=== PATIENT | female | born 1955 | race African-American/Black ===

== ENCOUNTER 2022-05-07 16:51 | Inpatient (IN) | payer MEDICARE, OTHER, MEDICAID ==
[~2022-05-07] VITALS: Ht 162.6 cm; Wt 78.0 kg
[~2022-05-07 16:51] MED LIST: BUSP10TA4 PO; CIPR-263 PO; CLAR10 PO; ESCI10TA PO; FLONAS BOTHNSTRLS; HYDR12.529 PO; OMEP20CA14 PO; TRAZ-251 PO
[2022-05-07] MEDS ORDERED: NICARDIPINE 40MG/200ML PREMIX 200 ML IV PRN ×2 (17:30→23:30)
[2022-05-07] MEDS ORDERED: LEVETIRACETAM 1000MG PREMIX 100 ML IV ONE (17:30)
[2022-05-07] MEDS ORDERED: MANNITOL 20% (20GM/100ML) BAG 500ML PREMIX IV NR (17:30)
[2022-05-07 17:38] LABS: BASOPHILS % 0.2 % (0.0-2.0); EOSINOPHILS % 2.5 % (0.0-5.0); HEMATOCRIT. 21.8 % (36.0-48.0); HEMOGLOBIN. 7.2 g/dL (12.0-16.0); MEAN CORPUSCULAR HEMOGLOBIN 30.8 pg (28.0-32.0); MEAN CORPUSCULAR VOLUME 93.6 fL (81.0-99.0); MEAN PLATELET VOLUME 7.9 fl (7.4-10.4); MONOCYTES % 4.9 % (2.0-8.0); NEUTROPHILS % 73.4 % (40.0-76.0); PLATELET 167 x1000/uL (130-400); RED BLOOD CELL COUNT 2.33 mill/uL (4.2-5.4); RED CELL DISTRIBUTION WIDTH 14.7 % (11.6-14.6)
[2022-05-07 17:44] LABS: PROTHROMBIN TIME 11.2 sec (9.6-11.0)
[2022-05-07 17:56] LABS: CHLORIDE 104 mEq/L (98-107)
[2022-05-07 18:09] LABS: CREATINE KINASE 253 IU/L (26-192); ETHANOL BLOOD < 10 mg/dL
[2022-05-07] MEDS ORDERED: IOHEXOL-350 100 ML BOTTLE ONE (19:28)
[2022-05-08] VITALS (46 sets, daily range): BP systolic 104–140; BP diastolic 47–73
[2022-05-08 00:28] LABS: HEMATOCRIT. 27.6 % (36.0-48.0); HEMOGLOBIN. 9.3 g/dL (12.0-16.0); MEAN CORPUSCULAR HEMOGLOBIN 31.6 pg (28.0-32.0); MEAN CORPUSCULAR VOLUME 93.4 fL (81.0-99.0); MEAN PLATELET VOLUME 8.2 fl (7.4-10.4); PLATELET 204 x1000/uL (130-400); RED BLOOD CELL COUNT 2.96 mill/uL (4.2-5.4); RED CELL DISTRIBUTION WIDTH 15.2 % (11.6-14.6)
[2022-05-08 01:52] LABS: PLATELET ESTIMATE NORMAL
[2022-05-08] MEDS ORDERED: PROPOFOL 200MG/20ML VIAL IV ONE (10:24)
[2022-05-08] MEDS ORDERED: ONDANSETRON HCL 4MG/2ML INJ ONE (10:32)
[2022-05-08] MEDS ORDERED: DEXAMETHASONE 4MG/ML 1ML VIAL ONE (10:33)
[2022-05-08] MEDS ORDERED: ROCURONIUM BROMIDE 10MG/ML VIAL 5ML IV ONE (10:33)
[2022-05-08] MEDS ORDERED: MIDAZOLAM HCL 2 MG/2 ML VIAL ONE (10:36)
[2022-05-08] MEDS ORDERED: THROMBIN (BOVINE) 5000 UNITS/VIAL TOP ONE (10:44)
[2022-05-08] MEDS ORDERED: LIDOCAINE HCL 1%/EPI 1:200,000 30 ML VIAL ONE (10:44)
[2022-05-08] MEDS ORDERED: GENTAMICIN SULF 40MG/ML 2ML VIAL ONE (10:45)
[2022-05-08] MEDS ORDERED: SKIN ADHESIVE 0.7 GM EA TOP ONE (10:45)
[2022-05-08] MEDS ORDERED: BACITRACIN 15GM TUBE TOP ONE (10:45)
[2022-05-08] MEDS: DEXT 5%/LACTATED RINGERS 1,000 ML IV SCH (11:00)
[2022-05-08] MEDS ORDERED: LEVETIRACETAM 500 MG in SODIUM CHLORIDE 0.9% 100 ML IV SCH (11:00)
[2022-05-08] MEDS ORDERED: ONDANSETRON HCL 4MG/2ML INJ IV PRN (11:15)
[2022-05-08] MEDS ORDERED: CEFAZOLIN SODIUM 1000MG/VIAL ONE (11:43)
[2022-05-08] MEDS ORDERED: FENTANYL CITRATE/PF 50MCG/ML 2ML VIAL ONE ×2 (11:43→11:53)
[2022-05-08] MEDS ORDERED: PROPOFOL 10MG/ML 100ML 100 ML IV PRN (11:45)
[2022-05-08 13:43] LABS: BG BASE EXCESS -3.1 mmol/L (-2.0-2.0); BG CARBOXYHEMOGLOBIN 0.3 % (0.5-1.5); BG DEOXYHEMOGLOBIN 0.2 % (0.0-5.0); BG FRACTION INSPIRED OXYGEN 100; BG HCO3 ACT 19.9 mmol/L (22.0-26.0); BG METHEMOGLOBIN 0.6 % (0.0-1.5); BG OXYGEN SATURATION 99.8 % (92.0-98.5); BG OXYHEMOGLOBIN 98.9 % (94.0-97.0); BG PCO2 28.5 mmHg (35.0-45.0); BG PH 7.462 (7.350-7.450); BG PO2 583.7 mmHg (75.0-100.0); BG SAMPLE SITE RIGHT RADIAL; BG TOTAL HEMOGLOBIN 9.3 g/dL (12.0-18.0); BG VENT MODE VENT - AC
[2022-05-08] MEDS ORDERED: CEFAZOLIN SODIUM 1000MG/VIAL IV SCH (14:00)
[2022-05-08] MEDS: PANTOPRAZOLE SODIUM 40 MG/VIAL IV SCH (14:30)
[2022-05-08] MEDS: LEVETIRACETAM 500MG PREMIX 100 ML IV SCH ×2 (14:31→21:44)
[2022-05-08] MEDS: CEFAZOLIN 1000MG PREMIX 50 ML IV SCH ×2 (14:31→21:44)
[2022-05-08] MEDS: DEXAMETHASONE 4MG/ML 1ML VIAL IV SCH ×3 (14:31→23:41)
[2022-05-08] MEDS: NICARDIPINE 100 MG in SODIUM CHLORIDE 0.9% 60 ML IV PRN (14:31)
[2022-05-08] MEDS: AMLODIPINE 10MG TABLET PO SCH (16:14)
[2022-05-08] MEDS: HYDRALAZINE HCL 25MG TABLET PO SCH ×2 (16:14→21:45)
[2022-05-08 22:16] LABS: CLARITY URINE CLEAR (CLEAR); COLOR URINE YELLOW (YELLOW); KETONES URINE NEGATIVE (NEGATIVE); LEUKOCYTE ESTERASE URINE NEGATIVE (NEGATIVE); NITRITE URINE NEGATIVE (NEGATIVE); OCCULT BLOOD URINE TRACE (NEGATIVE); PROTEIN URINE TRACE (NEGATIVE); SPECIFIC GRAVITY URINE 1.023 (1.005-1.030); UROBILINOGEN URINE 0.2 E.U./dL (0.2-1.0)
[2022-05-08 22:36] LABS: *AMPHETAMINES SCREEN URINE NEGATIVE (NEGATIVE); *BARBITURATES SCREEN URINE NEGATIVE (NEGATIVE); *BENZODIAZEPINES SCREEN URINE PRESUMTIVE POSITIVE (NEGATIVE); *COCAINE SCREEN URINE NEGATIVE (NEGATIVE); CANNABINOID URINE SCREEN NEGATIVE (NEGATIVE); METHADONE URINE SCREEN NEGATIVE (NEGATIVE); OPIATES URINE SCREEN NEGATIVE (NEGATIVE); PHENCYCLIDINE URINE SCREEN NEGATIVE (NEGATIVE)
[2022-05-09] VITALS (95 sets, daily range): BP systolic 111–142; BP diastolic 48–67
[2022-05-09] MEDS: DEXT 5%/LACTATED RINGERS 1,000 ML IV SCH ×2 (03:07→20:20)
[2022-05-09] MEDS: HYDRALAZINE HCL 25MG TABLET PO SCH (05:22)
[2022-05-09] MEDS: CEFAZOLIN 1000MG PREMIX 50 ML IV SCH ×3 (05:22→21:19)
[2022-05-09] MEDS: DEXAMETHASONE 4MG/ML 1ML VIAL IV SCH ×2 (05:22→12:51)
[2022-05-09 05:26] LABS: HEMATOCRIT. 26.3 % (36.0-48.0); HEMOGLOBIN. 8.4 g/dL (12.0-16.0); MEAN CORPUSCULAR HEMOGLOBIN 30.4 pg (28.0-32.0); MEAN CORPUSCULAR VOLUME 94.6 fL (81.0-99.0); MEAN PLATELET VOLUME 8.5 fl (7.4-10.4); PLATELET 196 x1000/uL (130-400); RED BLOOD CELL COUNT 2.78 mill/uL (4.2-5.4); RED CELL DISTRIBUTION WIDTH 15.7 % (11.6-14.6)
[2022-05-09 07:55] LABS: BG BASE EXCESS -3.2 mmol/L (-2.0-2.0); BG CARBOXYHEMOGLOBIN 0.3 % (0.5-1.5); BG DEOXYHEMOGLOBIN 1.5 % (0.0-5.0); BG FRACTION INSPIRED OXYGEN 40; BG HCO3 ACT 21.1 mmol/L (22.0-26.0); BG METHEMOGLOBIN 0.2 % (0.0-1.5); BG OXYGEN SATURATION 98.5 % (92.0-98.5); BG PCO2 34.3 mmHg (35.0-45.0); BG PH 7.406 (7.350-7.450); BG PO2 124.3 mmHg (75.0-100.0); BG SAMPLE SITE RIGHT RADIAL; BG TOTAL HEMOGLOBIN 8.6 g/dL (12.0-18.0); BG VENT MODE VENT - AC
[2022-05-09] MEDS: PANTOPRAZOLE SODIUM 40 MG/VIAL IV SCH (08:44)
[2022-05-09] MEDS: AMLODIPINE 10MG TABLET PO SCH (08:44)
[2022-05-09] MEDS: LEVETIRACETAM 500MG PREMIX 100 ML IV SCH ×2 (08:44→20:35)
[2022-05-09 11:39] LABS: PLATELET ESTIMATE NORMAL
[2022-05-09] MEDS: HYDRALAZINE HCL 50MG TABLET PO SCH ×2 (13:11→21:18)
[2022-05-09] MEDS: NICARDIPINE 100 MG in SODIUM CHLORIDE 0.9% 60 ML IV PRN (18:19)
[2022-05-10] VITALS (95 sets, daily range): BP systolic 108–149; BP diastolic 46–67
[2022-05-10] MEDS: HYDRALAZINE 20MG/ML VIAL IV PRN ×2 (02:07→20:42)
[2022-05-10 05:30] LABS: HEMATOCRIT. 24.4 % (36.0-48.0); HEMOGLOBIN. 7.8 g/dL (12.0-16.0); MEAN PLATELET VOLUME 8.6 fl (7.4-10.4); PLATELET 176 x1000/uL (130-400); RED CELL DISTRIBUTION WIDTH 15.4 % (11.6-14.6)
[2022-05-10] MEDS: CEFAZOLIN 1000MG PREMIX 50 ML IV SCH ×2 (05:34→13:27)
[2022-05-10] MEDS: HYDRALAZINE HCL 50MG TABLET PO SCH (05:35)
[2022-05-10] MEDS: PANTOPRAZOLE SODIUM 40 MG/VIAL IV SCH (08:30)
[2022-05-10] MEDS: LEVETIRACETAM 500MG PREMIX 100 ML IV SCH ×2 (08:31→19:54)
[2022-05-10] MEDS: AMLODIPINE 10MG TABLET PO SCH (08:32)
[2022-05-10] MEDS ORDERED: DEXTROSE 5% WATER 1,000 ML IV SCH (08:57)
[2022-05-10] MEDS ORDERED: AMLODIPINE 10MG TABLET PO SCH (09:00)
[2022-05-10 10:11] LABS: PLATELET ESTIMATE NORMAL
[2022-05-10] MEDS ORDERED: DEXTROSE 50% WATER 50ML SYRINGE IV PRN (11:15)
[2022-05-10] MEDS: DEXT 5%/LACTATED RINGERS 1,000 ML IV SCH (12:38)
[2022-05-10] MEDS: INSULIN LISPRO 100 UNITS/ML SUBCUT SCH ×3 (12:39→23:24)
[2022-05-10] MEDS: BLOOD SUGAR DIAGNOSTIC STRIP TEST SCH ×3 (12:39→23:24)
[2022-05-10] MEDS: HYDRALAZINE HCL 100MG TABLET PO SCH ×2 (13:28→21:15)
[2022-05-10] MEDS: MORPHINE SULFATE 4 MG/ML CPJ (NOT FOR IM USE) IV PRN (19:54)
[2022-05-10] MEDS: PIPERACILLIN/TAZOBACTAM 3.375 G in DEXTROSE 5% WATER 50 ML IV SCH (20:36)
[2022-05-11] VITALS (95 sets, daily range): BP systolic 119–147; BP diastolic 46–68
[2022-05-11] MEDS: HYDRALAZINE 20MG/ML VIAL IV PRN (03:18)
[2022-05-11] MEDS: BLOOD SUGAR DIAGNOSTIC STRIP TEST SCH ×4 (05:03→23:28)
[2022-05-11] MEDS: INSULIN LISPRO 100 UNITS/ML SUBCUT SCH ×4 (05:07→23:32)
[2022-05-11] MEDS: DEXT 5%/LACTATED RINGERS 1,000 ML IV SCH ×2 (05:07→21:31)
[2022-05-11] MEDS: PIPERACILLIN/TAZOBACTAM 3.375 G in DEXTROSE 5% WATER 50 ML IV SCH ×3 (05:07→21:30)
[2022-05-11] MEDS: HYDRALAZINE HCL 100MG TABLET PO SCH ×3 (05:07→21:32)
[2022-05-11] MEDS: MORPHINE SULFATE 4 MG/ML CPJ (NOT FOR IM USE) IV PRN (05:32)
[2022-05-11 05:47] LABS: HEMATOCRIT. 24.6 % (36.0-48.0); HEMOGLOBIN. 8.1 g/dL (12.0-16.0); MEAN CORPUSCULAR HEMOGLOBIN 30.7 pg (28.0-32.0); MEAN CORPUSCULAR VOLUME 93.3 fL (81.0-99.0); MEAN PLATELET VOLUME 8.3 fl (7.4-10.4); PLATELET 176 x1000/uL (130-400); RED BLOOD CELL COUNT 2.64 mill/uL (4.2-5.4); RED CELL DISTRIBUTION WIDTH 15.7 % (11.6-14.6)
[2022-05-11] MEDS ORDERED: AMLODIPINE 10MG TABLET PO SCH (09:00)
[2022-05-11 09:03] LABS: BG BASE EXCESS -3.6 mmol/L (-2.0-2.0); BG CARBOXYHEMOGLOBIN 0.1 % (0.5-1.5); BG FRACTION INSPIRED OXYGEN 30; BG HCO3 ACT 20.7 mmol/L (22.0-26.0); BG METHEMOGLOBIN 0.3 % (0.0-1.5); BG OXYHEMOGLOBIN 97.6 % (94.0-97.0); BG PCO2 33.8 mmHg (35.0-45.0); BG PH 7.405 (7.350-7.450); BG SAMPLE SITE RIGHT RADIAL; BG TOTAL HEMOGLOBIN 7.5 g/dL (12.0-18.0); BG VENT MODE VENT - AC
[2022-05-11] MEDS: PANTOPRAZOLE SODIUM 40 MG/VIAL IV SCH (09:13)
[2022-05-11] MEDS: LEVETIRACETAM 500MG PREMIX 100 ML IV SCH ×2 (09:14→21:31)
[2022-05-11] MEDS: AMLODIPINE 10MG TABLET PO SCH ×2 (09:14→21:31)
[2022-05-11 10:28] LABS: PLATELET ESTIMATE NORMAL
[2022-05-11] MEDS: NICARDIPINE 100 MG in SODIUM CHLORIDE 0.9% 60 ML IV PRN (12:39)
[2022-05-11] MEDS: CARVEDILOL 6.25 MG TABLET PO SCH ×2 (17:33→21:32)
[2022-05-12] VITALS (96 sets, daily range): BP systolic 92–149; BP diastolic 42–113
[2022-05-12] MEDS: BLOOD SUGAR DIAGNOSTIC STRIP TEST SCH ×3 (05:20→18:53)
[2022-05-12] MEDS: INSULIN LISPRO 100 UNITS/ML SUBCUT SCH ×3 (05:26→17:31)
[2022-05-12] MEDS: PIPERACILLIN/TAZOBACTAM 3.375 G in DEXTROSE 5% WATER 50 ML IV SCH ×3 (05:26→21:39)
[2022-05-12] MEDS: HYDRALAZINE HCL 100MG TABLET PO SCH ×3 (05:27→21:39)
[2022-05-12 05:43] LABS: HEMATOCRIT. 23.2 % (36.0-48.0); HEMOGLOBIN. 7.7 g/dL (12.0-16.0); MEAN CORPUSCULAR VOLUME 93.9 fL (81.0-99.0); MEAN PLATELET VOLUME 9.1 fl (7.4-10.4); PLATELET 167 x1000/uL (130-400); RED BLOOD CELL COUNT 2.47 mill/uL (4.2-5.4); RED CELL DISTRIBUTION WIDTH 15.6 % (11.6-14.6)
[2022-05-12] MEDS ORDERED: LIDOCAINE HCL 1% 30ML VIAL (10MG/ML) ONE (07:32)
[2022-05-12] MEDS: PANTOPRAZOLE SODIUM 40 MG/VIAL IV SCH (09:58)
[2022-05-12] MEDS: LEVETIRACETAM 500MG PREMIX 100 ML IV SCH ×2 (09:58→20:48)
[2022-05-12] MEDS: CARVEDILOL 6.25 MG TABLET PO SCH ×2 (09:58→21:39)
[2022-05-12] MEDS: AMLODIPINE 10MG TABLET PO SCH ×2 (09:59→21:39)
[2022-05-12 10:05] LABS: PLATELET ESTIMATE NORMAL
[2022-05-12] MEDS ORDERED: POTASSIUM CHLORIDE 20MEQ TABLET SR PO NR (11:30)
[2022-05-12] MEDS: LACTULOSE 20G/30ML UDC PO PRN (14:26)
[2022-05-12] MEDS: CLONIDINE 0.1MG TABLET PO SCH ×2 (14:28→21:46)
[2022-05-12] MEDS: DEXT 5%/0.45% NACL 1000ML 1,000 ML IV SCH (14:28)
[2022-05-12] MEDS: ISOSORBIDE DINITRATE 20MG TABLET PO SCH (17:30)
[2022-05-13] VITALS (90 sets, daily range): BP systolic 95–147; BP diastolic 43–91
[2022-05-13] MEDS: INSULIN LISPRO 100 UNITS/ML SUBCUT SCH ×5 (00:31→23:29)
[2022-05-13 05:40] LABS: HEMATOCRIT. 22.1 % (36.0-48.0); HEMOGLOBIN. 7.3 g/dL (12.0-16.0); MEAN CORPUSCULAR VOLUME 94.1 fL (81.0-99.0); MEAN PLATELET VOLUME 8.8 fl (7.4-10.4); PLATELET 156 x1000/uL (130-400); RED BLOOD CELL COUNT 2.34 mill/uL (4.2-5.4); RED CELL DISTRIBUTION WIDTH 15.9 % (11.6-14.6)
[2022-05-13] MEDS: CLONIDINE 0.1MG TABLET PO SCH ×2 (06:00→14:46)
[2022-05-13] MEDS: BLOOD SUGAR DIAGNOSTIC STRIP TEST SCH ×5 (06:00→23:28)
[2022-05-13] MEDS: HYDRALAZINE HCL 100MG TABLET PO SCH ×3 (06:00→21:39)
[2022-05-13] MEDS: PIPERACILLIN/TAZOBACTAM 3.375 G in DEXTROSE 5% WATER 50 ML IV SCH ×3 (06:08→21:39)
[2022-05-13 07:30] LABS: ATYPICAL LYMPHOCYTES 1
[2022-05-13 07:31] LABS: PLATELET ESTIMATE NORMAL
[2022-05-13] MEDS: DEXT 5%/0.45% NACL 1000ML 1,000 ML IV SCH ×2 (08:51→23:28)
[2022-05-13] MEDS: PANTOPRAZOLE SODIUM 40 MG/VIAL IV SCH (08:51)
[2022-05-13] MEDS: LEVETIRACETAM 500MG PREMIX 100 ML IV SCH ×2 (08:51→21:00)
[2022-05-13] MEDS: AMLODIPINE 10MG TABLET PO SCH ×2 (08:52→21:00)
[2022-05-13] MEDS: CARVEDILOL 6.25 MG TABLET PO SCH (09:00)
[2022-05-13] MEDS: ISOSORBIDE DINITRATE 20MG TABLET PO SCH ×3 (12:35→17:58)
[2022-05-13] MEDS: LACTULOSE 20G/30ML UDC PO PRN (17:57)
[2022-05-13] MEDS ORDERED: POTASSIUM CHLORIDE 20MEQ/PACKET PO NR (20:00)
[2022-05-13] MEDS: CARVEDILOL 3.125 MG TABLET PO SCH (21:39)
[2022-05-14] VITALS (60 sets, daily range): BP systolic 89–153; BP diastolic 46–81
[2022-05-14] MEDS: HYDRALAZINE HCL 100MG TABLET PO SCH ×3 (05:24→21:11)
[2022-05-14] MEDS: PIPERACILLIN/TAZOBACTAM 3.375 G in DEXTROSE 5% WATER 50 ML IV SCH ×3 (05:24→21:11)
[2022-05-14] MEDS: INSULIN LISPRO 100 UNITS/ML SUBCUT SCH ×4 (05:25→23:25)
[2022-05-14] MEDS: BLOOD SUGAR DIAGNOSTIC STRIP TEST SCH ×4 (05:25→23:25)
[2022-05-14 05:26] LABS: EOSINOPHILS % 0.9 % (0.0-5.0); HEMOGLOBIN. 7.3 g/dL (12.0-16.0); LYMPHOCYTES % 9.7 % (20.0-50.0); MEAN CORPUSCULAR VOLUME 93.3 fL (81.0-99.0); MEAN PLATELET VOLUME 8.7 fl (7.4-10.4); MONOCYTES % 6.8 % (2.0-8.0); NEUTROPHILS % 82.6 % (40.0-76.0); PLATELET 164 x1000/uL (130-400); RED BLOOD CELL COUNT 2.35 mill/uL (4.2-5.4); RED CELL DISTRIBUTION WIDTH 15.5 % (11.6-14.6)
[2022-05-14] MEDS: CARVEDILOL 3.125 MG TABLET PO SCH (09:00)
[2022-05-14] MEDS: LEVETIRACETAM 500MG PREMIX 100 ML IV SCH ×2 (09:03→20:15)
[2022-05-14] MEDS: ISOSORBIDE DINITRATE 20MG TABLET PO SCH ×3 (09:04→18:08)
[2022-05-14] MEDS: PANTOPRAZOLE SODIUM 40 MG/VIAL IV SCH (09:04)
[2022-05-14] MEDS: AMLODIPINE 10MG TABLET PO SCH ×2 (09:04→20:15)
[2022-05-14] MEDS: DEXT 5%/0.45% NACL 1000ML 1,000 ML IV SCH (16:42)
[2022-05-15] VITALS (82 sets, daily range): BP systolic 106–165; BP diastolic 45–78
[2022-05-15 05:38] LABS: EOSINOPHILS % 1.1 % (0.0-5.0); HEMATOCRIT. 22.8 % (36.0-48.0); HEMOGLOBIN. 7.6 g/dL (12.0-16.0); LYMPHOCYTES % 9.6 % (20.0-50.0); MEAN CORPUSCULAR HEMOGLOBIN 31.4 pg (28.0-32.0); MEAN CORPUSCULAR VOLUME 94.3 fL (81.0-99.0); MEAN PLATELET VOLUME 8.8 fl (7.4-10.4); NEUTROPHILS % 82.3 % (40.0-76.0); PLATELET 181 x1000/uL (130-400); RED BLOOD CELL COUNT 2.42 mill/uL (4.2-5.4); RED CELL DISTRIBUTION WIDTH 15.5 % (11.6-14.6)
[2022-05-15] MEDS: PIPERACILLIN/TAZOBACTAM 3.375 G in DEXTROSE 5% WATER 50 ML IV SCH ×2 (05:46→14:16)
[2022-05-15] MEDS: HYDRALAZINE HCL 100MG TABLET PO SCH ×3 (05:46→21:11)
[2022-05-15] MEDS: INSULIN LISPRO 100 UNITS/ML SUBCUT SCH ×4 (05:47→23:41)
[2022-05-15] MEDS: BLOOD SUGAR DIAGNOSTIC STRIP TEST SCH ×4 (05:47→23:31)
[2022-05-15] MEDS: LEVETIRACETAM 500MG PREMIX 100 ML IV SCH ×2 (08:43→21:11)
[2022-05-15] MEDS: PANTOPRAZOLE SODIUM 40 MG/VIAL IV SCH (08:44)
[2022-05-15] MEDS: AMLODIPINE 10MG TABLET PO SCH ×2 (08:44→21:11)
[2022-05-15] MEDS: ISOSORBIDE DINITRATE 20MG TABLET PO SCH (08:44)
[2022-05-15 12:03] LABS: BG BASE EXCESS -3.5 mmol/L (-2.0-2.0); BG CARBOXYHEMOGLOBIN 0.3 % (0.5-1.5); BG DEOXYHEMOGLOBIN 1.7 % (0.0-5.0); BG FRACTION INSPIRED OXYGEN 30; BG HCO3 ACT 20.2 mmol/L (22.0-26.0); BG METHEMOGLOBIN 0.2 % (0.0-1.5); BG OXYGEN SATURATION 98.3 % (92.0-98.5); BG OXYHEMOGLOBIN 97.8 % (94.0-97.0); BG PCO2 30.2 mmHg (35.0-45.0); BG PH 7.443 (7.350-7.450); BG PO2 122.6 mmHg (75.0-100.0); BG SAMPLE SITE RIGHT RADIAL; BG TOTAL HEMOGLOBIN 7.1 g/dL (12.0-18.0); BG VENT MODE VENT - AC
[2022-05-15] MEDS ORDERED: ROCURONIUM BROMIDE 10MG/ML VIAL 5ML IV ONE (15:18)
[2022-05-15] MEDS ORDERED: ONDANSETRON HCL 4MG/2ML INJ ONE (15:37)
[2022-05-15] MEDS ORDERED: DEXAMETHASONE 4MG/ML 1ML VIAL ONE (15:38)
[2022-05-15] MEDS: ISOSORBIDE DINITRATE 30MG TABLET NG SCH ×2 (17:43→21:12)
[2022-05-15] MEDS: DEXT 5%/0.45% NACL 1000ML 1,000 ML IV SCH ×2 (17:57→23:42)
[2022-05-15 21:16] LABS: TOTAL IRON BINDING CAPACITY 146 ug/dL (250-450)
[2022-05-15 21:34] LABS: FERRITIN 358 ng/mL (10-291)
[2022-05-15 21:43] LABS: VITAMIN B12 SERUM 1192 pg/mL (211-911)
[2022-05-16] VITALS (30 sets, daily range): BP systolic 87–151; BP diastolic 39–119
[2022-05-16] MEDS: BLOOD SUGAR DIAGNOSTIC STRIP TEST SCH ×3 (05:25→17:54)
[2022-05-16] MEDS: HYDRALAZINE HCL 100MG TABLET PO SCH ×3 (05:31→22:24)
[2022-05-16] MEDS: ISOSORBIDE DINITRATE 30MG TABLET NG SCH ×3 (05:31→22:24)
[2022-05-16] MEDS: INSULIN LISPRO 100 UNITS/ML SUBCUT SCH ×3 (05:32→18:06)
[2022-05-16 05:44] LABS: HEMATOCRIT. 22.3 % (36.0-48.0); HEMOGLOBIN. 7.3 g/dL (12.0-16.0); MEAN CORPUSCULAR VOLUME 94.4 fL (81.0-99.0); MEAN PLATELET VOLUME 8.7 fl (7.4-10.4); PLATELET 187 x1000/uL (130-400); RED BLOOD CELL COUNT 2.36 mill/uL (4.2-5.4); RED CELL DISTRIBUTION WIDTH 15.6 % (11.6-14.6)
[2022-05-16 07:32] LABS: PLATELET ESTIMATE NORMAL
[2022-05-16] MEDS: PANTOPRAZOLE SODIUM 40 MG/VIAL IV SCH (08:33)
[2022-05-16] MEDS: LEVETIRACETAM 500MG PREMIX 100 ML IV SCH ×2 (08:34→22:23)
[2022-05-16] MEDS: AMLODIPINE 10MG TABLET PO SCH ×2 (08:34→22:23)
[2022-05-16] MEDS: DEXTROSE 5% WATER 1,000 ML IV SCH (11:45)
[2022-05-16] MEDS ORDERED: INSULIN GLARGINE 100 UNITS/ML SUBCUT NR (12:00)
[2022-05-16] MEDS: INSULIN GLARGINE 100 UNITS/ML SUBCUT SCH (22:25)
[2022-05-17] VITALS (17 sets, daily range): BP systolic 112–157; BP diastolic 45–73
[2022-05-17] MEDS ORDERED: DEXT 5%/0.45% NACL 500ML 500 ML IV ONE (00:01)
[2022-05-17] MEDS: BLOOD SUGAR DIAGNOSTIC STRIP TEST SCH ×4 (00:28→17:05)
[2022-05-17] MEDS: INSULIN LISPRO 100 UNITS/ML SUBCUT SCH ×4 (00:29→17:05)
[2022-05-17] MEDS: ISOSORBIDE DINITRATE 30MG TABLET NG SCH ×4 (05:57→21:56)
[2022-05-17] MEDS: HYDRALAZINE HCL 100MG TABLET PO SCH ×4 (05:57→21:57)
[2022-05-17 06:16] LABS: EOSINOPHILS % 0.3 % (0.0-5.0); LYMPHOCYTES % 8.1 % (20.0-50.0); MEAN CORPUSCULAR HEMOGLOBIN 30.1 pg (28.0-32.0); MEAN CORPUSCULAR VOLUME 94.1 fL (81.0-99.0); MEAN PLATELET VOLUME 9.2 fl (7.4-10.4); MONOCYTES % 4.8 % (2.0-8.0); NEUTROPHILS % 86.8 % (40.0-76.0); PLATELET 205 x1000/uL (130-400); RED BLOOD CELL COUNT 2.23 mill/uL (4.2-5.4); RED CELL DISTRIBUTION WIDTH 15.4 % (11.6-14.6)
[2022-05-17 06:35] LABS: PROTHROMBIN TIME 10.3 sec (9.6-11.0)
[2022-05-17 06:58] LABS: HEMOGLOBIN. 6.7 g/dL (12.0-16.0)
[2022-05-17] MEDS: DEXTROSE 5% WATER 1,000 ML IV SCH (09:12)
[2022-05-17] MEDS: PANTOPRAZOLE SODIUM 40 MG/VIAL IV SCH (09:15)
[2022-05-17] MEDS: AMLODIPINE 10MG TABLET PO SCH ×2 (09:23→21:57)
[2022-05-17] MEDS: INSULIN GLARGINE 100 UNITS/ML SUBCUT SCH ×2 (09:36→21:57)
[2022-05-17] MEDS: LEVETIRACETAM 500MG PREMIX 100 ML IV SCH ×2 (10:09→21:56)
[2022-05-17] MEDS ORDERED: IPRATROPIUM/ALBUTEROL 0.5-3(2.5)MG/3ML NEB HHN SCH (12:00)
[2022-05-17] MEDS ORDERED: IPRATROPIUM/ALBUTEROL 0.5-3(2.5)MG/3ML NEB HHN PRN (12:00)
[2022-05-17] MEDS ORDERED: ALBUTEROL (0.083%) 2.5MG/3ML NEB HHN PRN (12:15)
[2022-05-17] MEDS ORDERED: IPRATROPIUM BROMIDE (0.02%) 0.5MG/2.5ML NEB HHN PRN (12:15)
[2022-05-17] MEDS: IPRATROPIUM BROMIDE (0.02%) 0.5MG/2.5ML NEB HHN SCH ×2 (16:12→20:16)
[2022-05-17] MEDS: ALBUTEROL (0.083%) 2.5MG/3ML NEB HHN SCH ×2 (16:13→20:16)
[2022-05-18] VITALS (12 sets, daily range): BP systolic 111–147; BP diastolic 47–63
[2022-05-18] MEDS: INSULIN LISPRO 100 UNITS/ML SUBCUT SCH ×4 (00:23→17:51)
[2022-05-18] MEDS: BLOOD SUGAR DIAGNOSTIC STRIP TEST SCH ×4 (00:24→17:51)
[2022-05-18] MEDS: ALBUTEROL (0.083%) 2.5MG/3ML NEB HHN SCH ×4 (01:41→20:49)
[2022-05-18] MEDS: IPRATROPIUM BROMIDE (0.02%) 0.5MG/2.5ML NEB HHN SCH ×4 (01:41→20:49)
[2022-05-18] MEDS: DEXTROSE 5% WATER 1,000 ML IV SCH ×2 (04:23→23:54)
[2022-05-18] MEDS: ISOSORBIDE DINITRATE 30MG TABLET NG SCH ×3 (06:44→22:09)
[2022-05-18] MEDS: HYDRALAZINE HCL 100MG TABLET PO SCH ×3 (06:44→23:53)
[2022-05-18] MEDS: PANTOPRAZOLE SODIUM 40 MG/VIAL IV SCH (10:27)
[2022-05-18] MEDS: LEVETIRACETAM 500MG PREMIX 100 ML IV SCH ×2 (10:27→22:10)
[2022-05-18] MEDS: AMLODIPINE 10MG TABLET PO SCH ×2 (10:28→22:09)
[2022-05-18] MEDS: INSULIN GLARGINE 100 UNITS/ML SUBCUT SCH ×2 (10:31→22:20)
[2022-05-18 11:01] LABS: BASOPHILS % 0.1 % (0.0-2.0); EOSINOPHILS % 0.8 % (0.0-5.0); HEMATOCRIT. 21.7 % (36.0-48.0); HEMOGLOBIN. 7.1 g/dL (12.0-16.0); MEAN CORPUSCULAR VOLUME 91.4 fL (81.0-99.0); MEAN PLATELET VOLUME 8.6 fl (7.4-10.4); MONOCYTES % 4.9 % (2.0-8.0); NEUTROPHILS % 85.2 % (40.0-76.0); PLATELET 180 x1000/uL (130-400); RED BLOOD CELL COUNT 2.37 mill/uL (4.2-5.4); RED CELL DISTRIBUTION WIDTH 16.1 % (11.6-14.6)
[2022-05-18 17:30] LABS: HEMATOCRIT 22.7 % (36.0-48.0); HEMOGLOBIN 7.5 g/dL (12.0-16.0); MEAN CORPUSCULAR HEMOGLOBIN 30.2 pg (28.0-32.0); MEAN CORPUSCULAR VOLUME 90.8 fL (81.0-99.0); PLATELET 183 x1000/uL (130-400); RED CELL DISTRIBUTION WIDTH 15.8 % (11.6-14.6)
[2022-05-19] VITALS (12 sets, daily range): BP systolic 115–152; BP diastolic 52–74
[2022-05-19] MEDS: BLOOD SUGAR DIAGNOSTIC STRIP TEST SCH ×5 (00:19→23:47)
[2022-05-19] MEDS: INSULIN LISPRO 100 UNITS/ML SUBCUT SCH ×5 (00:19→23:46)
[2022-05-19] MEDS: IPRATROPIUM BROMIDE (0.02%) 0.5MG/2.5ML NEB HHN SCH ×4 (02:15→20:06)
[2022-05-19] MEDS: ALBUTEROL (0.083%) 2.5MG/3ML NEB HHN SCH ×4 (02:15→20:06)
[2022-05-19] MEDS: ISOSORBIDE DINITRATE 30MG TABLET NG SCH ×2 (05:36→13:49)
[2022-05-19] MEDS: HYDRALAZINE HCL 100MG TABLET PO SCH ×3 (05:36→21:18)
[2022-05-19] MEDS: PANTOPRAZOLE SODIUM 40 MG/VIAL IV SCH (10:11)
[2022-05-19] MEDS: AMLODIPINE 10MG TABLET PO SCH ×2 (10:12→21:18)
[2022-05-19] MEDS: LEVETIRACETAM 500MG PREMIX 100 ML IV SCH ×2 (10:12→21:17)
[2022-05-19] MEDS: INSULIN GLARGINE 100 UNITS/ML SUBCUT SCH ×2 (10:15→21:17)
[2022-05-19 15:46] LABS: BASOPHILS % 0.1 % (0.0-2.0); EOSINOPHILS % 1.1 % (0.0-5.0); HEMATOCRIT. 23.5 % (36.0-48.0); HEMOGLOBIN. 7.8 g/dL (12.0-16.0); LYMPHOCYTES % 7.8 % (20.0-50.0); MEAN CORPUSCULAR HEMOGLOBIN 30.2 pg (28.0-32.0); MEAN CORPUSCULAR VOLUME 90.9 fL (81.0-99.0); MEAN PLATELET VOLUME 8.7 fl (7.4-10.4); MONOCYTES % 3.8 % (2.0-8.0); NEUTROPHILS % 87.2 % (40.0-76.0); PLATELET 204 x1000/uL (130-400); RED BLOOD CELL COUNT 2.58 mill/uL (4.2-5.4); RED CELL DISTRIBUTION WIDTH 15.5 % (11.6-14.6)
[2022-05-19] MEDS: ISOSORBIDE DINITRATE 10MG TABLET NG SCH (21:19)
[2022-05-19] MEDS: ACETAMINOPHEN 650MG/20.3ML UDC PO PRN (23:46)
[2022-05-20] VITALS (12 sets, daily range): BP systolic 124–148; BP diastolic 52–71
[2022-05-20] MEDS: IPRATROPIUM BROMIDE (0.02%) 0.5MG/2.5ML NEB HHN SCH ×4 (02:50→20:15)
[2022-05-20] MEDS: ALBUTEROL (0.083%) 2.5MG/3ML NEB HHN SCH ×4 (02:51→20:15)
[2022-05-20 03:09] LABS: HEMATOCRIT. 21.9 % (36.0-48.0); HEMOGLOBIN. 7.2 g/dL (12.0-16.0); MEAN CORPUSCULAR HEMOGLOBIN 29.9 pg (28.0-32.0); MEAN CORPUSCULAR VOLUME 90.7 fL (81.0-99.0); MEAN PLATELET VOLUME 8.2 fl (7.4-10.4); PLATELET 182 x1000/uL (130-400); RED BLOOD CELL COUNT 2.42 mill/uL (4.2-5.4); RED CELL DISTRIBUTION WIDTH 15.7 % (11.6-14.6)
[2022-05-20 03:18] LABS: INR 0.9; PROTHROMBIN TIME 10.2 sec (9.6-11.0)
[2022-05-20 03:20] LABS: CHLORIDE 121 mEq/L (98-107)
[2022-05-20] MEDS: CEFAZOLIN 1000MG PREMIX 50 ML IV NR (05:57)
[2022-05-20] MEDS: ISOSORBIDE DINITRATE 10MG TABLET NG SCH ×3 (05:58→22:08)
[2022-05-20] MEDS: INSULIN LISPRO 100 UNITS/ML SUBCUT SCH ×3 (05:58→18:00)
[2022-05-20] MEDS: HYDRALAZINE HCL 100MG TABLET PO SCH ×3 (05:58→22:08)
[2022-05-20] MEDS: BLOOD SUGAR DIAGNOSTIC STRIP TEST SCH ×3 (05:59→18:00)
[2022-05-20] MEDS: DEXTROSE 5% WATER 1,000 ML IV SCH ×2 (06:00→15:45)
[2022-05-20] MEDS: INSULIN GLARGINE 100 UNITS/ML SUBCUT SCH ×2 (10:00→22:00)
[2022-05-20 11:18] LABS: BG BASE EXCESS 0.6 mmol/L (-2.0-2.0); BG CARBOXYHEMOGLOBIN 0.1 % (0.5-1.5); BG DEOXYHEMOGLOBIN 1.8 % (0.0-5.0); BG FRACTION INSPIRED OXYGEN 30; BG HCO3 ACT 24.5 mmol/L (22.0-26.0); BG METHEMOGLOBIN 0.2 % (0.0-1.5); BG OXYGEN SATURATION 98.2 % (92.0-98.5); BG OXYHEMOGLOBIN 97.9 % (94.0-97.0); BG PCO2 35.8 mmHg (35.0-45.0); BG PH 7.453 (7.350-7.450); BG PO2 119.4 mmHg (75.0-100.0); BG SAMPLE SITE RIGHT RADIAL; BG TOTAL HEMOGLOBIN 7.3 g/dL (12.0-18.0); BG VENT MODE VENT - SIMV
[2022-05-20] MEDS: PANTOPRAZOLE SODIUM 40 MG/VIAL IV SCH (12:49)
[2022-05-20] MEDS: AMLODIPINE 10MG TABLET PO SCH ×2 (12:50→22:07)
[2022-05-20] MEDS ORDERED: LEVETIRACETAM 500MG in SODIUM CHLORIDE 0.9% 100ML IV NR (14:00)
[2022-05-20 15:47] LABS: PLATELET ESTIMATE NORMAL
[2022-05-20] MEDS: LEVETIRACETAM 500MG PREMIX 100 ML IV SCH (22:08)
[2022-05-21] VITALS (12 sets, daily range): BP systolic 125–157; BP diastolic 58–78
[2022-05-21] MEDS: BLOOD SUGAR DIAGNOSTIC STRIP TEST SCH ×4 (00:32→18:10)
[2022-05-21] MEDS: ALBUTEROL (0.083%) 2.5MG/3ML NEB HHN SCH ×4 (01:40→20:22)
[2022-05-21] MEDS: IPRATROPIUM BROMIDE (0.02%) 0.5MG/2.5ML NEB HHN SCH ×4 (01:40→20:23)
[2022-05-21] MEDS: INSULIN LISPRO 100 UNITS/ML SUBCUT SCH ×4 (06:00→18:09)
[2022-05-21 06:29] LABS: PROTHROMBIN TIME 10.3 sec (9.6-11.0)
[2022-05-21] MEDS: ISOSORBIDE DINITRATE 10MG TABLET NG SCH ×3 (06:32→22:01)
[2022-05-21] MEDS: HYDRALAZINE HCL 100MG TABLET PO SCH ×3 (06:32→22:02)
[2022-05-21 06:54] LABS: HEMATOCRIT. 24.5 % (36.0-48.0); HEMOGLOBIN. 8.2 g/dL (12.0-16.0); MEAN CORPUSCULAR HEMOGLOBIN 30.7 pg (28.0-32.0); MEAN CORPUSCULAR VOLUME 91.8 fL (81.0-99.0); PLATELET 192 x1000/uL (130-400); RED BLOOD CELL COUNT 2.67 mill/uL (4.2-5.4); RED CELL DISTRIBUTION WIDTH 15.5 % (11.6-14.6)
[2022-05-21] MEDS: AMLODIPINE 10MG TABLET PO SCH ×2 (09:00→22:01)
[2022-05-21 09:25] LABS: BG BASE EXCESS 0.2 mmol/L (-2.0-2.0); BG CARBOXYHEMOGLOBIN 0.4 % (0.5-1.5); BG DEOXYHEMOGLOBIN 1.3 % (0.0-5.0); BG FRACTION INSPIRED OXYGEN 30; BG HCO3 ACT 24.1 mmol/L (22.0-26.0); BG METHEMOGLOBIN 0.3 % (0.0-1.5); BG OXYGEN SATURATION 98.7 % (92.0-98.5); BG PCO2 35.3 mmHg (35.0-45.0); BG PH 7.452 (7.350-7.450); BG PO2 132.3 mmHg (75.0-100.0); BG SAMPLE SITE RIGHT RADIAL; BG TOTAL HEMOGLOBIN 7.4 g/dL (12.0-18.0); BG VENT MODE VENT - SIMV
[2022-05-21] MEDS: INSULIN GLARGINE 100 UNITS/ML SUBCUT SCH ×2 (10:00→23:10)
[2022-05-21] MEDS: CEFAZOLIN 1000MG PREMIX 50 ML IV NR (10:55)
[2022-05-21] MEDS: LEVETIRACETAM 500MG PREMIX 100 ML IV SCH ×2 (10:55→22:00)
[2022-05-21] MEDS: PANTOPRAZOLE SODIUM 40 MG/VIAL IV SCH (10:56)
[2022-05-21] MEDS: DEXTROSE 5% WATER 1,000 ML IV SCH (10:57)
[2022-05-21] MEDS ORDERED: CEFAZOLIN 1000MG PREMIX 50 ML IV NR (11:00)
[2022-05-21] MEDS ORDERED: PROPOFOL 200MG/20ML VIAL IV ONE (12:30)
[2022-05-21] MEDS ORDERED: ONDANSETRON HCL 4MG/2ML INJ ONE (12:30)
[2022-05-21] MEDS ORDERED: DEXAMETHASONE 4MG/ML 1ML VIAL ONE (12:30)
[2022-05-21 21:26] LABS: PLATELET ESTIMATE NORMAL
[2022-05-22] VITALS (11 sets, daily range): BP systolic 130–153; BP diastolic 54–80
[2022-05-22] MEDS: BLOOD SUGAR DIAGNOSTIC STRIP TEST SCH ×4 (00:56→18:17)
[2022-05-22] MEDS: ALBUTEROL (0.083%) 2.5MG/3ML NEB HHN SCH ×3 (01:34→13:44)
[2022-05-22] MEDS: IPRATROPIUM BROMIDE (0.02%) 0.5MG/2.5ML NEB HHN SCH ×3 (01:35→13:44)
[2022-05-22] MEDS: INSULIN LISPRO 100 UNITS/ML SUBCUT SCH ×4 (06:00→18:00)
[2022-05-22] MEDS: ISOSORBIDE DINITRATE 10MG TABLET NG SCH ×3 (06:35→22:27)
[2022-05-22] MEDS: METOCLOPRAMIDE HCL 10MG/2ML VIAL IV SCH ×3 (06:35→18:19)
[2022-05-22] MEDS: HYDRALAZINE HCL 100MG TABLET PO SCH ×3 (06:36→22:28)
[2022-05-22] MEDS: DEXTROSE 5% WATER 1,000 ML IV SCH (08:35)
[2022-05-22] MEDS: PANTOPRAZOLE SODIUM 40 MG/VIAL IV SCH (08:35)
[2022-05-22] MEDS: AMLODIPINE 10MG TABLET PO SCH ×2 (08:35→22:27)
[2022-05-22] MEDS: LEVETIRACETAM 500MG PREMIX 100 ML IV SCH ×2 (08:36→22:26)
[2022-05-22] MEDS: INSULIN GLARGINE 100 UNITS/ML SUBCUT SCH ×2 (10:51→22:00)
[2022-05-23] VITALS (11 sets, daily range): BP systolic 54–159; BP diastolic 48–79
[2022-05-23] MEDS: BLOOD SUGAR DIAGNOSTIC STRIP TEST SCH ×4 (00:08→16:43)
[2022-05-23] MEDS: METOCLOPRAMIDE HCL 10MG/2ML VIAL IV SCH ×4 (00:08→17:11)
[2022-05-23] MEDS: INSULIN LISPRO 100 UNITS/ML SUBCUT SCH ×4 (05:44→16:43)
[2022-05-23] MEDS: DEXTROSE 5% WATER 1,000 ML IV SCH ×2 (05:52→23:45)
[2022-05-23] MEDS: ISOSORBIDE DINITRATE 10MG TABLET NG SCH ×3 (05:53→22:00)
[2022-05-23] MEDS: HYDRALAZINE HCL 100MG TABLET PO SCH ×2 (05:54→14:20)
[2022-05-23 06:01] LABS: BASOPHILS % 0.2 % (0.0-2.0); EOSINOPHILS % 1.6 % (0.0-5.0); HEMATOCRIT. 22.4 % (36.0-48.0); HEMOGLOBIN. 7.3 g/dL (12.0-16.0); MEAN CORPUSCULAR VOLUME 91.4 fL (81.0-99.0); MEAN PLATELET VOLUME 8.8 fl (7.4-10.4); MONOCYTES % 3.8 % (2.0-8.0); NEUTROPHILS % 86.4 % (40.0-76.0); PLATELET 187 x1000/uL (130-400); RED BLOOD CELL COUNT 2.45 mill/uL (4.2-5.4); RED CELL DISTRIBUTION WIDTH 14.9 % (11.6-14.6)
[2022-05-23] MEDS: AMLODIPINE 10MG TABLET PO SCH ×2 (09:00→21:00)
[2022-05-23] MEDS: LEVETIRACETAM 500MG PREMIX 100 ML IV SCH ×2 (09:35→21:00)
[2022-05-23] MEDS: PANTOPRAZOLE SODIUM 40 MG/VIAL IV SCH (09:35)
[2022-05-23] MEDS: INSULIN GLARGINE 100 UNITS/ML SUBCUT SCH ×2 (10:54→22:00)
[2022-05-24] VITALS (8 sets, daily range): BP systolic 99–142; BP diastolic 48–76
[2022-05-24] MEDS: METOCLOPRAMIDE HCL 10MG/2ML VIAL IV SCH (00:53)
[2022-05-24] MEDS: HYDRALAZINE HCL 100MG TABLET PO SCH ×4 (00:54→22:34)
[2022-05-24] MEDS: BLOOD SUGAR DIAGNOSTIC STRIP TEST SCH ×4 (00:58→18:51)
[2022-05-24] MEDS: INSULIN LISPRO 100 UNITS/ML SUBCUT SCH ×4 (06:00→18:00)
[2022-05-24] MEDS: ISOSORBIDE DINITRATE 10MG TABLET NG SCH ×3 (07:10→22:34)
[2022-05-24] MEDS: PANTOPRAZOLE SODIUM 40 MG/VIAL IV SCH (09:56)
[2022-05-24] MEDS: AMLODIPINE 10MG TABLET PO SCH ×2 (09:56→22:34)
[2022-05-24] MEDS: LEVETIRACETAM 500MG PREMIX 100 ML IV SCH ×2 (09:56→22:36)
[2022-05-24] MEDS: INSULIN GLARGINE 100 UNITS/ML SUBCUT SCH ×2 (11:36→22:35)
[2022-05-24 12:02] LABS: MEAN CORPUSCULAR HEMOGLOBIN 30.3 pg (28.0-32.0); MEAN CORPUSCULAR VOLUME 91.7 fL (81.0-99.0); MEAN PLATELET VOLUME 8.8 fl (7.4-10.4); PLATELET 173 x1000/uL (130-400); RED BLOOD CELL COUNT 2.23 mill/uL (4.2-5.4); RED CELL DISTRIBUTION WIDTH 14.7 % (11.6-14.6)
[2022-05-24 12:07] LABS: HEMATOCRIT. 20.5 % (36.0-48.0); HEMOGLOBIN. 6.8 g/dL (12.0-16.0)
[2022-05-24 14:06] LABS: PLATELET ESTIMATE NORMAL
[2022-05-24] MEDS: ACETAMINOPHEN 650MG/20.3ML UDC PO PRN (14:46)
[2022-05-24] MEDS: DEXTROSE 5% WATER 1,000 ML IV SCH (18:51)
[2022-05-24 21:06] LABS: HEMATOCRIT 24.9 % (36.0-48.0); HEMOGLOBIN 8.3 g/dL (12.0-16.0)
[2022-05-25] VITALS (14 sets, daily range): BP systolic 109–150; BP diastolic 51–81
[2022-05-25] MEDS: ISOSORBIDE DINITRATE 10MG TABLET NG SCH ×3 (05:59→21:35)
[2022-05-25] MEDS: HYDRALAZINE HCL 100MG TABLET PO SCH ×3 (06:00→21:34)
[2022-05-25] MEDS: BLOOD SUGAR DIAGNOSTIC STRIP TEST SCH ×5 (06:00→23:53)
[2022-05-25] MEDS: INSULIN LISPRO 100 UNITS/ML SUBCUT SCH ×5 (06:00→23:53)
[2022-05-25 07:10] LABS: BASOPHILS % 0.1 % (0.0-2.0); EOSINOPHILS % 1.3 % (0.0-5.0); HEMATOCRIT. 23.4 % (36.0-48.0); HEMOGLOBIN. 7.8 g/dL (12.0-16.0); LYMPHOCYTES % 8.9 % (20.0-50.0); MEAN CORPUSCULAR HEMOGLOBIN 29.8 pg (28.0-32.0); MEAN CORPUSCULAR VOLUME 89.5 fL (81.0-99.0); MEAN PLATELET VOLUME 9.1 fl (7.4-10.4); MONOCYTES % 4.4 % (2.0-8.0); NEUTROPHILS % 85.3 % (40.0-76.0); PLATELET 173 x1000/uL (130-400); RED BLOOD CELL COUNT 2.61 mill/uL (4.2-5.4); RED CELL DISTRIBUTION WIDTH 15.8 % (11.6-14.6)
[2022-05-25] MEDS: PANTOPRAZOLE SODIUM 40 MG/VIAL IV SCH (09:26)
[2022-05-25] MEDS: LEVETIRACETAM 500MG PREMIX 100 ML IV SCH ×2 (09:27→21:36)
[2022-05-25] MEDS: AMLODIPINE 10MG TABLET PO SCH ×2 (09:27→21:35)
[2022-05-25] MEDS: INSULIN GLARGINE 100 UNITS/ML SUBCUT SCH ×2 (10:43→23:55)
[2022-05-25] MEDS: DEXTROSE 5% WATER 1,000 ML IV SCH ×2 (18:13→23:55)
[2022-05-26] VITALS (12 sets, daily range): BP systolic 102–150; BP diastolic 47–86
[2022-05-26] MEDS: INSULIN LISPRO 100 UNITS/ML SUBCUT SCH ×3 (06:00→17:12)
[2022-05-26] MEDS: BLOOD SUGAR DIAGNOSTIC STRIP TEST SCH ×3 (06:00→17:12)
[2022-05-26] MEDS: HYDRALAZINE HCL 100MG TABLET PO SCH ×3 (06:14→22:21)
[2022-05-26] MEDS: ISOSORBIDE DINITRATE 10MG TABLET NG SCH ×3 (06:14→22:22)
[2022-05-26 07:24] LABS: BASOPHILS % 0.2 % (0.0-2.0); EOSINOPHILS % 1.7 % (0.0-5.0); HEMATOCRIT. 23.7 % (36.0-48.0); HEMOGLOBIN. 7.8 g/dL (12.0-16.0); LYMPHOCYTES % 12.2 % (20.0-50.0); MEAN CORPUSCULAR HEMOGLOBIN 29.7 pg (28.0-32.0); MEAN CORPUSCULAR VOLUME 89.7 fL (81.0-99.0); MEAN PLATELET VOLUME 9.3 fl (7.4-10.4); MONOCYTES % 6.2 % (2.0-8.0); NEUTROPHILS % 79.7 % (40.0-76.0); PLATELET 181 x1000/uL (130-400); RED BLOOD CELL COUNT 2.64 mill/uL (4.2-5.4); RED CELL DISTRIBUTION WIDTH 15.3 % (11.6-14.6)
[2022-05-26] MEDS: AMLODIPINE 10MG TABLET PO SCH ×2 (09:00→22:21)
[2022-05-26] MEDS: PANTOPRAZOLE SODIUM 40 MG/VIAL IV SCH (09:50)
[2022-05-26] MEDS: INSULIN GLARGINE 100 UNITS/ML SUBCUT SCH (09:54)
[2022-05-26] MEDS: LEVETIRACETAM 500MG PREMIX 100 ML IV SCH ×2 (13:29→22:22)
[2022-05-27] VITALS (12 sets, daily range): BP systolic 117–139; BP diastolic 57–74
[2022-05-27] MEDS: INSULIN GLARGINE 100 UNITS/ML SUBCUT SCH ×3 (00:26→21:24)
[2022-05-27] MEDS: HYDRALAZINE HCL 100MG TABLET PO SCH ×3 (05:49→21:20)
[2022-05-27] MEDS: INSULIN LISPRO 100 UNITS/ML SUBCUT SCH ×4 (05:49→18:20)
[2022-05-27] MEDS: ISOSORBIDE DINITRATE 10MG TABLET NG SCH ×3 (05:49→21:19)
[2022-05-27] MEDS: BLOOD SUGAR DIAGNOSTIC STRIP TEST SCH ×4 (05:49→18:07)
[2022-05-27 07:18] LABS: BASOPHILS % 0.4 % (0.0-2.0); EOSINOPHILS % 2.2 % (0.0-5.0); HEMATOCRIT. 22.7 % (36.0-48.0); HEMOGLOBIN. 7.6 g/dL (12.0-16.0); LYMPHOCYTES % 12.2 % (20.0-50.0); MEAN CORPUSCULAR HEMOGLOBIN 30.2 pg (28.0-32.0); MEAN CORPUSCULAR VOLUME 89.7 fL (81.0-99.0); MEAN PLATELET VOLUME 8.7 fl (7.4-10.4); MONOCYTES % 8.9 % (2.0-8.0); NEUTROPHILS % 76.3 % (40.0-76.0); PLATELET 184 x1000/uL (130-400); RED BLOOD CELL COUNT 2.53 mill/uL (4.2-5.4); RED CELL DISTRIBUTION WIDTH 15.2 % (11.6-14.6)
[2022-05-27] MEDS: DEXTROSE 5% WATER 1,000 ML IV SCH (08:19)
[2022-05-27] MEDS: LEVETIRACETAM 500MG PREMIX 100 ML IV SCH (09:39)
[2022-05-27] MEDS: PANTOPRAZOLE SODIUM 40 MG/VIAL IV SCH (09:39)
[2022-05-27] MEDS: AMLODIPINE 10MG TABLET PO SCH ×2 (09:40→20:25)
[2022-05-27] MEDS: ACETAMINOPHEN 650MG/20.3ML UDC PO PRN (16:34)
[2022-05-27] MEDS: LEVETIRACETAM 500MG/5ML CUP NG SCH (20:25)
[2022-05-28] VITALS (14 sets, daily range): BP systolic 104–150; BP diastolic 55–74
[2022-05-28] MEDS: BLOOD SUGAR DIAGNOSTIC STRIP TEST SCH ×4 (00:03→18:28)
[2022-05-28] MEDS: DEXTROSE 5% WATER 1,000 ML IV SCH (04:17)
[2022-05-28] MEDS: ISOSORBIDE DINITRATE 10MG TABLET NG SCH ×3 (05:31→21:21)
[2022-05-28] MEDS: HYDRALAZINE HCL 100MG TABLET PO SCH ×3 (05:32→21:21)
[2022-05-28] MEDS: INSULIN LISPRO 100 UNITS/ML SUBCUT SCH ×4 (06:00→18:00)
[2022-05-28 06:13] LABS: BASOPHILS % 0.3 % (0.0-2.0); EOSINOPHILS % 2.2 % (0.0-5.0); HEMATOCRIT. 23.5 % (36.0-48.0); HEMOGLOBIN. 7.8 g/dL (12.0-16.0); LYMPHOCYTES % 10.2 % (20.0-50.0); MEAN CORPUSCULAR HEMOGLOBIN 29.8 pg (28.0-32.0); MEAN CORPUSCULAR VOLUME 89.7 fL (81.0-99.0); MEAN PLATELET VOLUME 8.9 fl (7.4-10.4); NEUTROPHILS % 79.3 % (40.0-76.0); PLATELET 194 x1000/uL (130-400); RED BLOOD CELL COUNT 2.62 mill/uL (4.2-5.4); RED CELL DISTRIBUTION WIDTH 15.4 % (11.6-14.6)
[2022-05-28] MEDS: AMLODIPINE 10MG TABLET PO SCH ×2 (09:00→21:21)
[2022-05-28] MEDS: LEVETIRACETAM 500MG/5ML CUP NG SCH ×2 (09:13→21:21)
[2022-05-28] MEDS: PANTOPRAZOLE SODIUM 40 MG/VIAL IV SCH (09:13)
[2022-05-28] MEDS: INSULIN GLARGINE 100 UNITS/ML SUBCUT SCH (09:14)
== END 2022-05-28 23:59 | disposition short-term general hospital (02) | DRG 3 ==
LOC: ER 16:59 → MICUSO 19:11 → 5EST 05-16 12:40
PROVIDERS: ADMIT Internal Medicine; ATTEND Internal Medicine
PROC: 5A1955Z Respiratory Ventilation, Greater than 96 Consecutive Hours (ICD-10-PCS; 2022-05-08)
PROC: 00C00ZZ Extirpation of Matter from Brain, Open Approach (ICD-10-PCS; 2022-05-08)
PROC: 00H032Z Insertion of Monitoring Device into Brain, Percutaneous Approach (ICD-10-PCS; 2022-05-08)
PROC: 4A103BD Monitoring of Intracranial Pressure, Percutaneous Approach (ICD-10-PCS; 2022-05-08)
PROC: 0BH17EZ Insertion of Endotracheal Airway into Trachea, Via Natural or Artificial Opening (ICD-10-PCS; 2022-05-08)
PROC: 02HV33Z Insertion of Infusion Device into Superior Vena Cava, Percutaneous Approach (ICD-10-PCS; 2022-05-12)
PROC: B548ZZA Ultrasonography of Superior Vena Cava, Guidance (ICD-10-PCS; 2022-05-12)
PROC: 0B110F4 Bypass Trachea to Cutaneous with Tracheostomy Device, Open Approach (ICD-10-PCS; principal; 2022-05-15)
PROC: 0GBJ0ZZ Excision of Thyroid Gland Isthmus, Open Approach (ICD-10-PCS; 2022-05-15)
PROC: 0DB78ZX Excision of Stomach, Pylorus, Via Natural or Artificial Opening Endoscopic, Diagnostic (ICD-10-PCS; 2022-05-21)
PROC: 0DH63UZ Insertion of Feeding Device into Stomach, Percutaneous Approach (ICD-10-PCS; 2022-05-21)
PROC: 30233N1 Transfusion of Nonautologous Red Blood Cells into Peripheral Vein, Percutaneous Approach (ICD-10-PCS; 2022-05-24)
DX: I61.9 Nontraumatic intracerebral hemorrhage, unspecified (principal); J96.00 Acute respiratory failure, unspecified whether with hypoxia or hypercapnia; I21.4 Non-ST elevation (NSTEMI) myocardial infarction; G93.5 Compression of brain; N17.0 Acute kidney failure with tubular necrosis; G93.6 Cerebral edema; E44.0 Moderate protein-calorie malnutrition; E87.1 Hypo-osmolality and hyponatremia; G93.40 Encephalopathy, unspecified; G81.91 Hemiplegia, unspecified affecting right dominant side; E87.0 Hyperosmolality and hypernatremia; I16.0 Hypertensive urgency; D64.9 Anemia, unspecified; E11.9 Type 2 diabetes mellitus without complications; Z66 Do not resuscitate; R13.10 Dysphagia, unspecified; Z20.822 Contact with and (suspected) exposure to COVID-19; F32.A Depression, unspecified; K29.70 Gastritis, unspecified, without bleeding; R40.3 Persistent vegetative state; Z79.899 Other long term (current) drug therapy; Z68.29 Body mass index [BMI] 29.0-29.9, adult
CPT/HCPCS: 36415; 36573; 36600; 70496; 70498; 71045; 80048; 80053; 80305; 80320; 81003; 82270; 82375; 82550; 82607; 82728; 82746; 82805; 82962; 83540; 83550; 83605; 83880; 84145; 84478; 84484; 85014; 85018; 85025; 85027; 85044; 86850; 86900; 86920; 87426; 88305; 93005; 93306; 94003; 94640; 99291; C1713; C1725; C9113; J0360; J0690; J1100; J1580; J1815; J1953; J2250; J2270; J2405; J2543; J2704; J2765; J3010; J3490; J7030; J7050; J7060; J7070; J7121; P9016; Q9967; A4315; G0480

== ENCOUNTER 2022-06-02 13:49 | Inpatient (IN) | payer MEDICARE, OTHER, MEDICAID ==
[~2022-06-02] VITALS: Ht 170.2 cm; Wt 77.6 kg
[2022-06-02 15:31] LABS: CHLORIDE 105 mEq/L (98-107)
[2022-06-02 15:35] LABS: BASOPHILS % 0.1 % (0.0-2.0); EOSINOPHILS % 1.8 % (0.0-5.0); MEAN CORPUSCULAR VOLUME 90.2 fL (81.0-99.0); MEAN PLATELET VOLUME 8.4 fl (7.4-10.4); MONOCYTES % 5.2 % (2.0-8.0); NEUTROPHILS % 84.9 % (40.0-76.0); PLATELET 266 x1000/uL (130-400); RED BLOOD CELL COUNT 2.23 mill/uL (4.2-5.4); RED CELL DISTRIBUTION WIDTH 15.1 % (11.6-14.6)
[2022-06-02 15:40] LABS: PROTHROMBIN TIME 10.5 sec (9.6-11.0)
[2022-06-02 15:47] LABS: HEMATOCRIT. 20.1 % (36.0-48.0); HEMOGLOBIN. 6.7 g/dL (12.0-16.0)
[2022-06-02 16:40] LABS: CLARITY URINE CLOUDY (CLEAR); COLOR URINE YELLOW (YELLOW); KETONES URINE NEGATIVE (NEGATIVE); LEUKOCYTE ESTERASE URINE 3+ (NEGATIVE); NITRITE URINE NEGATIVE (NEGATIVE); OCCULT BLOOD URINE NEGATIVE (NEGATIVE); PROTEIN URINE TRACE (NEGATIVE); SPECIFIC GRAVITY URINE 1.013 (1.005-1.030)
[2022-06-03 12:00] VITALS: BP_SYST 124; BP_SYST 139; BP_DIAS 63; BP_DIAS 80
[2022-06-03] MEDS ORDERED: ONDANSETRON HCL 4MG/2ML INJ IV PRN (12:15)
[2022-06-03] MEDS ORDERED: IPRATROPIUM/ALBUTEROL 0.5-3(2.5)MG/3ML NEB HHN PRN (13:15)
[2022-06-03] MEDS ORDERED: IPRATROPIUM BROMIDE (0.02%) 0.5MG/2.5ML NEB HHN PRN (13:30)
[2022-06-03] MEDS ORDERED: ALBUTEROL (0.083%) 2.5MG/3ML NEB HHN PRN (13:30)
[2022-06-03 14:00] VITALS: BP 140/67
[2022-06-03 15:03] LABS: BG BASE EXCESS 4.5 mmol/L (-2.0-2.0); BG CARBOXYHEMOGLOBIN 0.3 % (0.5-1.5); BG DEOXYHEMOGLOBIN 1.2 % (0.0-5.0); BG FRACTION INSPIRED OXYGEN 40; BG HCO3 ACT 26.2 mmol/L (22.0-26.0); BG METHEMOGLOBIN 0.3 % (0.0-1.5); BG OXYGEN SATURATION 98.8 % (92.0-98.5); BG OXYHEMOGLOBIN 98.2 % (94.0-97.0); BG PCO2 28.6 mmHg (35.0-45.0); BG PH 7.579 (7.350-7.450); BG SAMPLE SITE RIGHT RADIAL; BG TOTAL HEMOGLOBIN 9.4 g/dL (12.0-18.0); BG VENT MODE VENT - AC
[2022-06-03] MEDS: CEFTRIAXONE 1,000 MG in DEXTROSE 5% WATER 50 ML IV SCH (15:12)
[2022-06-03 16:00] VITALS: BP 148/68
[2022-06-03 16:42] LABS: HEMATOCRIT 25.3 % (36.0-48.0); HEMOGLOBIN 8.3 g/dL (12.0-16.0)
[2022-06-03 18:00] VITALS: BP 141/62
[2022-06-03] MEDS ORDERED: IPRATROPIUM/ALBUTEROL 0.5-3(2.5)MG/3ML NEB HHN SCH (18:00)
[2022-06-03 20:00] VITALS: BP 135/63
[2022-06-03] MEDS: ALBUTEROL (0.083%) 2.5MG/3ML NEB HHN SCH (20:45)
[2022-06-03] MEDS: IPRATROPIUM BROMIDE (0.02%) 0.5MG/2.5ML NEB HHN SCH (20:45)
[2022-06-03 22:00] VITALS: BP 143/62
[2022-06-03] MEDS: ACETAMINOPHEN 325MG TABLET PO PRN (23:58)
[2022-06-04] VITALS (12 sets, daily range): BP systolic 107–137; BP diastolic 52–90
[2022-06-04] MEDS: IPRATROPIUM BROMIDE (0.02%) 0.5MG/2.5ML NEB HHN SCH ×4 (02:07→20:22)
[2022-06-04] MEDS: ALBUTEROL (0.083%) 2.5MG/3ML NEB HHN SCH ×4 (02:07→20:22)
[2022-06-04 06:17] LABS: BASOPHILS % 0.2 % (0.0-2.0); EOSINOPHILS % 0.7 % (0.0-5.0); HEMATOCRIT. 25.5 % (36.0-48.0); HEMOGLOBIN. 8.7 g/dL (12.0-16.0); LYMPHOCYTES % 9.9 % (20.0-50.0); MEAN CORPUSCULAR HEMOGLOBIN 30.4 pg (28.0-32.0); MEAN CORPUSCULAR VOLUME 89.2 fL (81.0-99.0); MEAN PLATELET VOLUME 8.5 fl (7.4-10.4); NEUTROPHILS % 81.2 % (40.0-76.0); PLATELET 255 x1000/uL (130-400); RED BLOOD CELL COUNT 2.86 mill/uL (4.2-5.4); RED CELL DISTRIBUTION WIDTH 15.4 % (11.6-14.6)
[2022-06-04 08:34] LABS: BG BASE EXCESS 5.3 mmol/L (-2.0-2.0); BG CARBOXYHEMOGLOBIN 0.2 % (0.5-1.5); BG FRACTION INSPIRED OXYGEN 35; BG HCO3 ACT 28.3 mmol/L (22.0-26.0); BG METHEMOGLOBIN 0.3 % (0.0-1.5); BG OXYHEMOGLOBIN 97.5 % (94.0-97.0); BG PH 7.525 (7.350-7.450); BG SAMPLE SITE RIGHT RADIAL; BG TOTAL HEMOGLOBIN 8.9 g/dL (12.0-18.0); BG VENT MODE VENT - AC
[2022-06-04] MEDS: OMEPRAZOLE 20MG CAPSULE EXTENDED RELEASE PO SCH (08:53)
[2022-06-04] MEDS: CEFTRIAXONE 1,000 MG in DEXTROSE 5% WATER 50 ML IV SCH (13:58)
[2022-06-04] MEDS: ACETAMINOPHEN 325MG TABLET PO PRN (13:59)
[2022-06-05] VITALS (13 sets, daily range): BP systolic 122–160; BP diastolic 57–87
[2022-06-05] MEDS: ALBUTEROL (0.083%) 2.5MG/3ML NEB HHN SCH ×4 (01:22→20:23)
[2022-06-05] MEDS: IPRATROPIUM BROMIDE (0.02%) 0.5MG/2.5ML NEB HHN SCH ×4 (01:23→20:23)
[2022-06-05] MEDS: OMEPRAZOLE 20MG CAPSULE EXTENDED RELEASE PO SCH (07:52)
[2022-06-05] MEDS: CEFTRIAXONE 1,000 MG in DEXTROSE 5% WATER 50 ML IV SCH (13:39)
[2022-06-06] VITALS (12 sets, daily range): BP systolic 136–163; BP diastolic 55–82
[2022-06-06] MEDS: IPRATROPIUM BROMIDE (0.02%) 0.5MG/2.5ML NEB HHN SCH ×3 (01:55→14:17)
[2022-06-06] MEDS: ALBUTEROL (0.083%) 2.5MG/3ML NEB HHN SCH ×3 (01:55→14:17)
[2022-06-06] MEDS: OMEPRAZOLE 20MG CAPSULE EXTENDED RELEASE PO SCH (06:25)
[2022-06-06] MEDS: CEFTRIAXONE 1,000 MG in DEXTROSE 5% WATER 50 ML IV SCH (13:50)
[2022-06-06] MEDS ORDERED: IPRATROPIUM/ALBUTEROL 0.5-3(2.5)MG/3ML NEB HHN PRN (17:30)
[2022-06-06] MEDS: IPRATROPIUM/ALBUTEROL 0.5-3(2.5)MG/3ML NEB HHN SCH (20:50)
[2022-06-07] VITALS (13 sets, daily range): BP systolic 129–172; BP diastolic 61–87
[2022-06-07] MEDS: IPRATROPIUM/ALBUTEROL 0.5-3(2.5)MG/3ML NEB HHN SCH ×4 (00:38→20:11)
[2022-06-07] MEDS: OMEPRAZOLE 20MG CAPSULE EXTENDED RELEASE PO SCH (05:39)
[2022-06-07] MEDS ORDERED: CEFTRIAXONE 1GM PREMIX 50 ML IV SCH (14:00)
[2022-06-07] MEDS ORDERED: DEXTROSE 50% WATER 50ML SYRINGE IV PRN (22:00)
[2022-06-07] MEDS: ACETAMINOPHEN 325MG TABLET PO PRN (22:51)
[2022-06-08] VITALS (11 sets, daily range): BP systolic 118–165; BP diastolic 59–83
[2022-06-08] MEDS: IPRATROPIUM/ALBUTEROL 0.5-3(2.5)MG/3ML NEB HHN SCH ×3 (02:06→20:07)
[2022-06-08] MEDS: BLOOD SUGAR DIAGNOSTIC STRIP TEST SCH ×4 (06:49→20:32)
[2022-06-08] MEDS: OMEPRAZOLE 20MG CAPSULE EXTENDED RELEASE PO SCH (06:49)
[2022-06-08] MEDS: INSULIN LISPRO 100 UNITS/ML SUBCUT SCH ×4 (06:54→20:32)
[2022-06-08] MEDS ORDERED: LEVOFLOXACIN 500MG PREMIX 100 ML IV NR (15:00)
[2022-06-08] MEDS: ACETAMINOPHEN 325MG TABLET PO PRN (21:14)
[2022-06-09] MEDS ORDERED: LEVOFLOXACIN 250MG PREMIX 50 ML IV SCH (15:00)
== END 2022-06-08 22:15 | DRG 870 ==
LOC: ER 14:01 → 5EST 16:55 → MICUNO 06-06 17:22
PROVIDERS: ADMIT Internal Medicine; ATTEND Internal Medicine
PROC: 30233N1 Transfusion of Nonautologous Red Blood Cells into Peripheral Vein, Percutaneous Approach (ICD-10-PCS; principal; 2022-06-03)
PROC: 5A1955Z Respiratory Ventilation, Greater than 96 Consecutive Hours (ICD-10-PCS; 2022-06-03)
DX: A41.59 Other Gram-negative sepsis (principal); E43 Unspecified severe protein-calorie malnutrition; J96.20 Acute and chronic respiratory failure, unspecified whether with hypoxia or hypercapnia; N17.0 Acute kidney failure with tubular necrosis; G93.40 Encephalopathy, unspecified; I69.351 Hemiplegia and hemiparesis following cerebral infarction affecting right dominant side; N39.0 Urinary tract infection, site not specified; Z99.11 Dependence on respirator [ventilator] status; Z20.822 Contact with and (suspected) exposure to COVID-19; D50.9 Iron deficiency anemia, unspecified; E11.65 Type 2 diabetes mellitus with hyperglycemia; F32.A Depression, unspecified; I10 Essential (primary) hypertension; R13.10 Dysphagia, unspecified; E11.51 Type 2 diabetes mellitus with diabetic peripheral angiopathy without gangrene; B96.1 Klebsiella pneumoniae [K. pneumoniae] as the cause of diseases classified elsewhere; L89.150 Pressure ulcer of sacral region, unstageable; Z68.26 Body mass index [BMI] 26.0-26.9, adult; Z74.01 Bed confinement status; Z79.4 Long term (current) use of insulin; Z93.0 Tracheostomy status; Z93.1 Gastrostomy status; I25.2 Old myocardial infarction
CPT/HCPCS: 36415; 36600; 71045; 80048; 80053; 81003; 82040; 82375; 82805; 82962; 83036; 83880; 84134; 84484; 85014; 85018; 85025; 86850; 86900; 86920; 87186; 87426; 93005; 93923; 94002; 94003; 94640; 99291; A6261; C9803; J0696; J1815; J1956; J7060; P9016; A4315

== ENCOUNTER 2022-06-08 23:15 | Inpatient (IN) | payer MEDICARE, MEDICAID, OTHER ==
[~2022-06-08] VITALS: Ht 177.8 cm; Wt 74.4 kg
[2022-06-09] VITALS (9 sets, daily range): BP systolic 122–147; BP diastolic 54–81
[2022-06-09] MEDS ORDERED: LABETALOL 5MG/ML SYR 20 MG/4 ML SYRINGE IV ONE ×2 (00:15→01:15)
[2022-06-09] MEDS ORDERED: HYDRALAZINE 20MG/ML VIAL IV ONE (02:15)
[2022-06-09] MEDS ORDERED: ONDANSETRON HCL 4MG/2ML INJ IV ONE (02:15)
[2022-06-09] MEDS ORDERED: MORPHINE SULFATE 4 MG/ML CPJ (NOT FOR IM USE) IV ONE (02:15)
[2022-06-09 03:10] LABS: HEMATOCRIT. 26.9 % (36.0-48.0); HEMOGLOBIN. 8.8 g/dL (12.0-16.0); MEAN CORPUSCULAR HEMOGLOBIN 29.5 pg (28.0-32.0); MEAN CORPUSCULAR VOLUME 89.8 fL (81.0-99.0); MEAN PLATELET VOLUME 8.8 fl (7.4-10.4); PLATELET 218 x1000/uL (130-400); RED BLOOD CELL COUNT 2.99 mill/uL (4.2-5.4); RED CELL DISTRIBUTION WIDTH 15.2 % (11.6-14.6)
[2022-06-09 03:16] LABS: CHLORIDE 114 mEq/L (98-107)
[2022-06-09 03:41] LABS: PLATELET ESTIMATE NORMAL
[2022-06-09] MEDS ORDERED: HYDROCODONE/ACETAMINOPHEN 10/325MG TABLET PO PRN (06:45)
[2022-06-09] MEDS ORDERED: ALBUTEROL (0.083%) 2.5MG/3ML NEB HHN PRN (06:45)
[2022-06-09] MEDS ORDERED: ONDANSETRON HCL 4MG/2ML INJ IV PRN (06:45)
[2022-06-09] MEDS ORDERED: IPRATROPIUM/ALBUTEROL 0.5-3(2.5)MG/3ML NEB HHN PRN (06:45)
[2022-06-09] MEDS ORDERED: ACETAMINOPHEN 650MG/20.3ML UDC PO PRN (06:45)
[2022-06-09] MEDS ORDERED: NALOXONE HCL 0.4MG/ML VIAL IV PRN (07:30)
[2022-06-09] MEDS: HYDRALAZINE 20MG/ML VIAL IV SCH ×2 (07:41→11:18)
[2022-06-09] MEDS: IPRATROPIUM BROMIDE (0.02%) 0.5MG/2.5ML NEB HHN SCH ×3 (07:45→20:54)
[2022-06-09] MEDS: CEFTRIAXONE 1GM PREMIX 50 ML IV SCH (08:52)
[2022-06-09] MEDS: AMLODIPINE 10MG TABLET PO SCH (12:08)
[2022-06-09] MEDS: ALBUTEROL (0.083%) 2.5MG/3ML NEB HHN SCH ×2 (13:28→20:54)
[2022-06-10] VITALS (12 sets, daily range): BP systolic 115–169; BP diastolic 55–79
[2022-06-10] MEDS: ALBUTEROL (0.083%) 2.5MG/3ML NEB HHN SCH ×4 (02:38→20:29)
[2022-06-10] MEDS: IPRATROPIUM BROMIDE (0.02%) 0.5MG/2.5ML NEB HHN SCH ×4 (02:39→20:29)
[2022-06-10] MEDS: LANSOPRAZOLE 30MG DR CAPSULE GT SCH (06:30)
[2022-06-10] MEDS: AMLODIPINE 10MG TABLET PO SCH (08:26)
[2022-06-10] MEDS: CEFTRIAXONE 1GM PREMIX 50 ML IV SCH (08:26)
[2022-06-10 13:02] LABS: HEMATOCRIT. 25.8 % (36.0-48.0); HEMOGLOBIN. 8.4 g/dL (12.0-16.0); MEAN CORPUSCULAR HEMOGLOBIN 29.5 pg (28.0-32.0); MEAN CORPUSCULAR VOLUME 90.6 fL (81.0-99.0); MEAN PLATELET VOLUME 9.2 fl (7.4-10.4); PLATELET 208 x1000/uL (130-400); RED BLOOD CELL COUNT 2.85 mill/uL (4.2-5.4); RED CELL DISTRIBUTION WIDTH 15.5 % (11.6-14.6)
[2022-06-10 13:40] LABS: PLATELET ESTIMATE NORMAL
[2022-06-10] MEDS ORDERED: DEXTROSE 50% WATER 50ML SYRINGE IV PRN (14:30)
[2022-06-10] MEDS ORDERED: INSULIN LISPRO 100 UNITS/ML SUBCUT SCH (16:00)
[2022-06-10] MEDS: HYDRALAZINE HCL 50MG TABLET PO SCH (21:20)
[2022-06-10] MEDS: BLOOD SUGAR DIAGNOSTIC STRIP TEST SCH ×2 (23:00→23:57)
[2022-06-10] MEDS: INSULIN LISPRO 100 UNITS/ML SUBCUT SCH (23:56)
[2022-06-11] VITALS (13 sets, daily range): BP systolic 136–175; BP diastolic 63–88
[2022-06-11] MEDS: BLOOD SUGAR DIAGNOSTIC STRIP TEST SCH ×4 (05:29→23:13)
[2022-06-11] MEDS: INSULIN LISPRO 100 UNITS/ML SUBCUT SCH ×4 (05:29→23:51)
[2022-06-11] MEDS: LANSOPRAZOLE 30MG DR CAPSULE GT SCH (05:29)
[2022-06-11] MEDS: AMLODIPINE 10MG TABLET PO SCH (08:03)
[2022-06-11] MEDS: CEFTRIAXONE 1GM PREMIX 50 ML IV SCH (08:03)
[2022-06-11] MEDS: HYDRALAZINE HCL 50MG TABLET PO SCH (08:03)
[2022-06-11] MEDS: IPRATROPIUM BROMIDE (0.02%) 0.5MG/2.5ML NEB HHN SCH ×3 (08:46→20:34)
[2022-06-11] MEDS: ALBUTEROL (0.083%) 2.5MG/3ML NEB HHN SCH ×3 (08:46→20:34)
[2022-06-11] MEDS: RISPERIDONE 0.25MG TABLET PO SCH (11:24)
[2022-06-11 11:43] LABS: BASOPHILS % 0.3 % (0.0-2.0); EOSINOPHILS % 1.1 % (0.0-5.0); HEMATOCRIT. 27.3 % (36.0-48.0); HEMOGLOBIN. 8.8 g/dL (12.0-16.0); LYMPHOCYTES % 7.2 % (20.0-50.0); MEAN CORPUSCULAR HEMOGLOBIN 29.4 pg (28.0-32.0); MEAN CORPUSCULAR VOLUME 91.2 fL (81.0-99.0); MEAN PLATELET VOLUME 9.2 fl (7.4-10.4); MONOCYTES % 7.1 % (2.0-8.0); NEUTROPHILS % 84.3 % (40.0-76.0); PLATELET 222 x1000/uL (130-400); RED BLOOD CELL COUNT 2.99 mill/uL (4.2-5.4); RED CELL DISTRIBUTION WIDTH 15.4 % (11.6-14.6)
[2022-06-11 11:55] LABS: CHLORIDE 117 mEq/L (98-107)
[2022-06-11] MEDS ORDERED: HYDRALAZINE HCL 50MG TABLET PO NR (12:15)
[2022-06-11] MEDS: LEVOFLOXACIN 500MG TABLET PO SCH (12:31)
[2022-06-11 13:02] LABS: CLARITY URINE TURBID (CLEAR); COLOR URINE YELLOW (YELLOW); KETONES URINE NEGATIVE (NEGATIVE); LEUKOCYTE ESTERASE URINE 3+ (NEGATIVE); NITRITE URINE NEGATIVE (NEGATIVE); OCCULT BLOOD URINE TRACE (NEGATIVE); PROTEIN URINE 1+ (NEGATIVE); SPECIFIC GRAVITY URINE 1.015 (1.005-1.030); UROBILINOGEN URINE 0.2 E.U./dL (0.2-1.0)
[2022-06-11] MEDS: HYDRALAZINE HCL 100MG TABLET PO SCH (17:16)
[2022-06-12] VITALS (11 sets, daily range): BP systolic 98–156; BP diastolic 51–73
[2022-06-12] MEDS: HYDRALAZINE HCL 100MG TABLET PO SCH ×3 (00:56→17:00)
[2022-06-12] MEDS: ALBUTEROL (0.083%) 2.5MG/3ML NEB HHN SCH ×4 (03:13→20:49)
[2022-06-12] MEDS: IPRATROPIUM BROMIDE (0.02%) 0.5MG/2.5ML NEB HHN SCH ×4 (03:14→20:50)
[2022-06-12] MEDS: BLOOD SUGAR DIAGNOSTIC STRIP TEST SCH ×3 (04:48→18:00)
[2022-06-12] MEDS: LANSOPRAZOLE 30MG DR CAPSULE GT SCH (04:49)
[2022-06-12] MEDS: INSULIN LISPRO 100 UNITS/ML SUBCUT SCH ×3 (05:21→19:30)
[2022-06-12] MEDS: RISPERIDONE 0.25MG TABLET PO SCH (08:43)
[2022-06-12] MEDS: AMLODIPINE 10MG TABLET PO SCH (08:43)
[2022-06-12] MEDS: LEVOFLOXACIN 500MG TABLET PO SCH (11:22)
[2022-06-13] VITALS (12 sets, daily range): BP systolic 114–157; BP diastolic 55–83
[2022-06-13] MEDS: HYDRALAZINE HCL 100MG TABLET PO SCH ×3 (00:01→18:19)
[2022-06-13] MEDS: INSULIN LISPRO 100 UNITS/ML SUBCUT SCH ×4 (00:01→18:18)
[2022-06-13] MEDS: BLOOD SUGAR DIAGNOSTIC STRIP TEST SCH ×4 (00:01→18:09)
[2022-06-13] MEDS: ALBUTEROL (0.083%) 2.5MG/3ML NEB HHN SCH ×3 (02:23→14:53)
[2022-06-13] MEDS: IPRATROPIUM BROMIDE (0.02%) 0.5MG/2.5ML NEB HHN SCH ×2 (02:24→08:56)
[2022-06-13] MEDS: LANSOPRAZOLE 30MG DR CAPSULE GT SCH (05:30)
[2022-06-13] MEDS: RISPERIDONE 0.25MG TABLET PO SCH (08:59)
[2022-06-13] MEDS: AMLODIPINE 10MG TABLET PO SCH (09:00)
[2022-06-13] MEDS: LEVOFLOXACIN 500MG TABLET PO SCH (12:54)
== END 2022-06-13 19:48 | DRG 207 ==
LOC: ER 23:19 → MICUNO 06-09 04:12 → EDBEDREQTM 06-09 04:14 → EDBEDREQ 06-09 04:14 → EDBEDREQSVC 06-09 04:20 → ENRESERV 06-09 04:25
PROVIDERS: ADMIT Internal Medicine; ATTEND Internal Medicine
PROC: 5A1955Z Respiratory Ventilation, Greater than 96 Consecutive Hours (ICD-10-PCS; principal; 2022-06-09)
DX: J96.21 Acute and chronic respiratory failure with hypoxia (principal); E43 Unspecified severe protein-calorie malnutrition; N39.0 Urinary tract infection, site not specified; E87.1 Hypo-osmolality and hyponatremia; Z99.11 Dependence on respirator [ventilator] status; I16.0 Hypertensive urgency; E11.9 Type 2 diabetes mellitus without complications; D64.9 Anemia, unspecified; S90.822A Blister (nonthermal), left foot, initial encounter; S90.821A Blister (nonthermal), right foot, initial encounter; I10 Essential (primary) hypertension; L89.159 Pressure ulcer of sacral region, unspecified stage; L89.300 Pressure ulcer of unspecified buttock, unstageable; Z82.49 Family history of ischemic heart disease and other diseases of the circulatory system; Z74.01 Bed confinement status; Z86.73 Personal history of transient ischemic attack (TIA), and cerebral infarction without residual deficits; Z68.23 Body mass index [BMI] 23.0-23.9, adult; Z93.1 Gastrostomy status; Z93.0 Tracheostomy status; X58.XXXA Exposure to other specified factors, initial encounter; Y93.89 Activity, other specified; Y92.89 Other specified places as the place of occurrence of the external cause; Y99.8 Other external cause status
CPT/HCPCS: 36415; 71045; 80048; 80053; 81003; 82040; 82962; 83036; 84134; 85025; 87106; 87186; 93005; 94003; 94640; 99285; J0360; J0696; J1815; J2270; J2405; J3490; J7060